=== PATIENT | male | born 1950 | race Caucasian/White ===

== ENCOUNTER 2017-07-07 08:23 | Emergency (ER) | payer OTHER, MEDICARE | END 2017-07-07 09:06 | disposition home or self-care (01) | LOC: ER 09:06 | DX: M25.562 Pain in left knee (principal); R53.1 Weakness; M19.90 Unspecified osteoarthritis, unspecified site; Z91.041 Radiographic dye allergy status; Z88.1 Allergy status to other antibiotic agents | CPT/HCPCS: 29505; 99283 ==

== ENCOUNTER 2017-10-18 12:18 | Day surgery (SDC) | payer OTHER ==
[2017-10-18] MEDS: IV RINGERS,LACTATED 1000ML 1,000 ML IV (07:00)
[~2017-10-18 12:18] MED LIST: LIDOCAINE 1% PF 2 ML VIAL. ID; MORPHINE SULFATE 2 MG/ML DISP.SYRIN. IV; ONDANSETRON PF 4 MG/2 ML VIAL. IV; PROCHLORPERAZINE 10 MG/2 ML VIAL. IV; fentaNYL PF VIAL 100 MCG/2 ML VIAL IV
[2017-10-18] MEDS ORDERED: LIDOCAINE 2% JELLY 6ML IN APPLICATOR. (12:23)
[2017-10-18] MEDS ORDERED: LIDOCAINE 2% PF Vial for OR 5 ML VIAL. (13:08)
[2017-10-18] MEDS ORDERED: ONDANSETRON PF 4 MG/2 ML VIAL. (13:08)
[2017-10-18] MEDS ORDERED: PROPOFOL 20 ML IV (13:08)
[2017-10-18] MEDS ORDERED: fentaNYL PF VIAL 100 MCG/2 ML VIAL ×2 (13:09→14:22)
[2017-10-18 13:44] LABS: POC GLUCOSE 132 mg/dL (70-99)
[2017-10-18] MEDS: CIPROFLOXACIN 400MG PREMIX 200 ML IV (13:50)
[2017-10-18 13:57] LABS: BILIRUBIN,URINE NEGATIVE (NEG); CLARITY,URINE CLOUDY; COLOR,URINE YELLOW; GLUCOSE,URINE NEGATIVE (NEG); NITRITE,URINE POSITIVE (NEG); PH,URINE 5.5; PROTEIN,URINE NEGATIVE (NEG-TRACE); UROBILINOGEN,URINE 0.2 mg/dL (0.2 mg/dL)
[2017-10-18] MEDS ORDERED: GLYCOPYRROLATE 1 MG/5 ML VIAL. (14:00)
[2017-10-18] MEDS ORDERED: ePHEDrine PF IN SALINE 50 MG/5 ML DISP.SYRIN IV (14:05)
[2017-10-18 14:18] LABS: AMORPHOUS SEDIMENT,UR PRESENT /HPF; BACTERIA,URINE MANY /HPF (0-FEW); RBC,URINE 0 /HPF (0-2); WBC,URINE TNTC /HPF (0-4)
[2017-10-18 14:21] LABS: PROSTATE SPECIFIC ANTIGEN 1.75 ng/mL (0.00-4.00)
[2017-10-18] MEDS: LIDOCAINE 2% JELLY 6ML IN APPLICATOR. (14:35)
[2017-10-18 15:04] LABS: POC GLUCOSE 141 mg/dL (70-99)
[2017-10-18] MEDS: HYDROcodone/APAP 5/325MG 1 TAB TABLET PO (15:21)
== END 2017-10-18 16:50 | disposition home or self-care (01) ==
LOC: SURG 12:18
DX: N40.1 Benign prostatic hyperplasia with lower urinary tract symptoms (principal); E78.00 Pure hypercholesterolemia, unspecified; I10 Essential (primary) hypertension; Z98.890 Other specified postprocedural states; Z98.52 Vasectomy status; Z87.440 Personal history of urinary (tract) infections; Z87.39 Personal history of other diseases of the musculoskeletal system and connective tissue
CPT/HCPCS: 36415; 81001; 82962; 87086; 87186; A7015; G0103; J0744; J2001; J2405; J2704; J3010; J3490

== ENCOUNTER 2018-08-23 19:10 | Emergency (ER) | payer OTHER ==
[~2018-08-23] VITALS: Ht 177.8 cm; Wt 80.3 kg
[~2018-08-23 19:10] MED LIST changes: +ACET650T10 PO; +AMLO5TAB4 PO; +ASPI-482 PO; +CHOL500016 PO; +CINN500C2 PO; +CIPR500T6 PO; +CYAN1TAB28 PO; +CYCL10TA2 PO; +FINA5TAB PO; +GLIM2TAB2 PO; +HYDR-2679 PO; +HYDR-3164 PO; +IBUP-1027 PO; +IBUP-1060 PO; -LIDOCAINE 1% PF 2 ML VIAL. ID; +LOSA100T2 PO; +LOSA1TAB22 PO; +METF10007 PO; -MORPHINE SULFATE 2 MG/ML DISP.SYRIN. IV; +OMEG1CAP6 PO; +OMEG300C PO; -ONDANSETRON PF 4 MG/2 ML VIAL. IV; -PROCHLORPERAZINE 10 MG/2 ML VIAL. IV; +TAMS0.4C97 PO; +TRAM50TA PO; +UBID30CA9 PO; -fentaNYL PF VIAL 100 MCG/2 ML VIAL IV
[2018-08-23] MEDS ORDERED: IV NORMAL SALINE 1000ML BAG 1,000 ML IV ONE ×2 (19:45→21:15)
[2018-08-23] MEDS ORDERED: MORPHINE SULFATE 4 MG/ML VIAL. IV ONE (19:45)
[2018-08-23] MEDS ORDERED: ONDANSETRON PF 4 MG/2 ML VIAL. IV ONE (19:45)
[2018-08-23 19:54] LABS: BASO # 0.1 x10^3/uL (0.0-0.2); BASO % 1 % (0-3); EOS # 0.2 x10^3/uL (0.0-0.7); EOS % 1 % (0-3); HEMOGLOBIN 12.7 g/dL (13.0-17.5); LYMPH # 3.3 x10^3/uL (1.0-4.8); LYMPH % 22 % (24-48); MEAN CORPUSCULAR HEMOGLOBIN 31 pg (25-35); MEAN CORPUSCULAR HGB CONC 33 g/dL (31-37); MEAN CORPUSCULAR VOLUME 95 fL (79-100); MONO # 1.7 x10^3/uL (0.0-1.1); MONO % 11 % (0-9); NEUT # 10.1 x10^3uL (1.8-7.7); NEUT % 66 % (31-73); PLATELET COUNT 320 x10^3/uL (140-400); RED CELL DISTRIBUTION WIDTH 14.9 % (11.5-14.5); WHITE BLOOD COUNT 15.5 x10^3/uL (4.0-11.0)
[2018-08-23 20:08] LABS: CALCIUM 9.1 mg/dL (8.5-10.1); CREATININE 2.1 mg/dL (0.7-1.3); GFR 31.5; POTASSIUM 3.9 mmol/L (3.5-5.1)
[2018-08-23 20:14] LABS: ALBUMIN 3.4 g/dL (3.4-5.0); ALBUMIN/GLOBULIN RATIO 0.8 (1.0-1.7); TOTAL BILIRUBIN 0.4 mg/dL (0.2-1.0); TOTAL PROTEIN 7.8 g/dL (6.4-8.2)
[2018-08-23 21:03] LABS: BILIRUBIN,URINE NEGATIVE (NEG); CLARITY,URINE CLEAR; COLOR,URINE YELLOW; NITRITE,URINE NEGATIVE (NEG); PH,URINE 5.5; PROTEIN,URINE 30 mg/dL (NEG-TRACE); UROBILINOGEN,URINE 0.2 mg/dL (0.2 mg/dL)
[2018-08-23 21:13] LABS: BACTERIA,URINE 0 /HPF (0-FEW); RBC,URINE RARE /HPF (0-2); SQUAMOUS EPITHELIAL CELL,UR FEW /LPF; WBC,URINE RARE /HPF (0-4)
[2018-08-23] MEDS ORDERED: cefTRIAXone IV Push 1 GM VIAL. IVP ONE (21:15)
[2018-08-23 22:17] LABS: CREATININE 1.9 mg/dL (0.7-1.3); GFR 35.3
[2018-08-23] MEDS ORDERED: TAMS0.4C97 PO (22:26)
[2018-08-23] MEDS ORDERED: OXYC1TAB15 PO (22:26)
--- NOTE | 2018-08-23 22:26 | PHYS DOC ---
Past Medical History Past Medical History: Arthritis, Hypertension, Kidney Stone (GHISLAINE MATUTE) Past Surgical History: Other Additional Past Surgical Histo: LEFT KNEE REPLACEMENT (GHISLAINE MATUTE) Alcohol Use: None Drug Use: None (GHISLAINE MATUTE) Adult General Chief Complaint Chief Complaint: FLANK PAIN HPI HPI Patient is a 67 year old M who presents with L flank pain. Pt was seen at [facility] 2 days ago and dx with a L ureteral [address] scan. He does have a hx of a kidney stone almost 20 years ago and states he passed it without intervention. He went home from hospital on Hydrocodone and states today the pain is not controlled so decided to come to ER. Pt states he actually feels quite a bit better now that he is here in ER even prior to medications. He is afebrile and appears well at time of exam. Copy of pt's records from [facility] were obtained and reviewed. CT showed the 5mm stone with moderate hydronephrosis and some stranding. WBC at that time was 19 and Cr was 1.4. Pt's urine was clean. (GHISLAINE MATUTE) Review of Systems Review of Systems Constitutional: Denies fever or chills [] Respiratory: Denies cough or shortness of breath [] Cardiovascular: Denies chest pain GI: Reports L sided flank pain around to LLQ. : Denies dysuria or hematuria L flank pain Musculoskeletal: Denies back pain or joint pain [] Integument: Denies rash or skin lesions [] Neurologic: Denies headache, focal weakness or sensory changes [] All other systems were reviewed and found to be within normal limits, except as documented in this note. (GHISLAINE MATUTE) Current Medications Current Medications Current Medications Medications (Trade) Dose Ordered Sig/Andrea Start Time Stop Time Status Last Admin Dose Admin Ceftriaxone Sodium (Rocephin) 1 gm 1X ONCE 08/23/18 21:15 08/23/18 21:16 DC 08/23/18 21:16 1 GM Morphine Sulfate (Morphine Sulfate) 4 mg 1X ONCE 08/23/18 19:45 08/23/18 19:50 DC 08/23/18 20:00 4 MG Ondansetron HCl (Zofran) 4 mg 1X ONCE 08/23/18 19:45 08/23/18 19:50 DC 08/23/18 19:59 4 MG Sodium Chloride 1,000 ml @ 1,000 mls/hr 1X ONCE 08/23/18 21:15 08/23/18 22:14 DC 08/23/18 21:16 1,000 MLS/HR (KECIA MATHEWS MD) Allergies Allergies Allergies Coded Allergies Type Severity Reaction Last Updated Verified Iodinated Contrast- Oral and IV Dye Allergy Severe Unknown 10/18/17 Yes cephalexin Allergy Intermediate Rash 10/18/17 Yes cyclobenzaprine Allergy Intermediate Unknown 10/18/17 Yes (KECIA MATHEWS MD) Physical Exam Physical Exam Constitutional: Well developed, well nourished, no acute distress, non-toxic appearance. [] Neck: Normal range of motion, no tenderness, supple, no stridor. [] Cardiovascular:Heart rate regular rhythm, no murmur [] Lungs & Thorax: Bilateral breath sounds clear to auscultation [] Abdomen: Bowel sounds normal, soft, no tenderness, no masses, no pulsatile masses. No palpable tenderness on exam. Skin: Warm, dry, no erythema, no rash. [] Back: No tenderness. Mild L CVA tenderness. Extremities: No tenderness, no cyanosis, no clubbing, ROM intact, no edema. [] Neurologic: Alert and oriented X 3, normal motor function, normal sensory function, no focal deficits noted. [] Psychologic: Affect normal, judgement normal, mood normal. [] (GHISLAINE MATUTE) Current Patient Data Vital Signs Vital Signs Date Time Temp Pulse Resp B/P (MAP) Pulse Ox O2 Delivery O2 Flow Rate FiO2 08/23/18 22:34 57 17 165/72 (103) 95 Room Air 08/23/18 19:16 99.5 99.5 (KECIA MATHEWS MD) Lab Values Laboratory Tests Test 08/23/18 19:35 08/23/18 20:50 08/23/18 22:00 White Blood Count 15.5 x10^3/uL (4.0-11.0) H Red Blood Count 4.10 x10^6/uL (4.30-5.70) L Hemoglobin 12.7 g/dL (13.0-17.5) L Hematocrit 39.0 % (39.0-53.0) Mean Corpuscular Volume 95 fL (79-100) Mean Corpuscular Hemoglobin 31 pg (25-35) Mean Corpuscular Hemoglobin Concent 33 g/dL (31-37) Red Cell Distribution Width 14.9 % (11.5-14.5) H Platelet Count 320 x10^3/uL (140-400) Neutrophils (%) (Auto) 66 % (31-73) Lymphocytes (%) (Auto) 22 % (24-48) L Monocytes (%) (Auto) 11 % (0-9) H Eosinophils (%) (Auto) 1 % (0-3) Basophils (%) (Auto) 1 % (0-3) Neutrophils # (Auto) 10.1 x10^3uL (1.8-7.7) H Lymphocytes # (Auto) 3.3 x10^3/uL (1.0-4.8) Monocytes # (Auto) 1.7 x10^3/uL (0.0-1.1) H Eosinophils # (Auto) 0.2 x10^3/uL (0.0-0.7) Basophils # (Auto) 0.1 x10^3/uL (0.0-0.2) Sodium Level 137 mmol/L (136-145) Potassium Level 3.9 mmol/L (3.5-5.1) Chloride Level 100 mmol/L (98-107) Carbon Dioxide Level 24 mmol/L (21-32) Anion Gap 13 (6-14) Blood Urea Nitrogen 29 mg/dL (8-26) H Creatinine 2.1 mg/dL (0.7-1.3) H 1.9 mg/dL (0.7-1.3) H Estimated GFR (Cockcroft-Gault) 31.5 35.3 BUN/Creatinine Ratio 14 (6-20) Glucose Level 232 mg/dL (70-99) H Lactic Acid Level 1.8 mmol/L (0.4-2.0) Calcium Level 9.1 mg/dL (8.5-10.1) Total Bilirubin 0.4 mg/dL (0.2-1.0) Aspartate Amino Transferase (AST) 18 U/L (15-37) Alanine Aminotransferase (ALT) 26 U/L (16-63) Alkaline Phosphatase 81 U/L (46-116) Total Protein 7.8 g/dL (6.4-8.2) Albumin 3.4 g/dL (3.4-5.0) Albumin/Globulin Ratio 0.8 (1.0-1.7) L Urine Collection Type Unknown Urine Color Yellow Urine Clarity Clear Urine pH 5.5 Urine Specific Pierson 1.020 Urine Protein 30 mg/dL (NEG-TRACE) Urine Glucose (UA) 500 mg/dL (NEG) Urine Ketones (Stick) Negative mg/dL (NEG) Urine Blood Trace (NEG) Urine Nitrite Negative (NEG) Urine Bilirubin Negative (NEG) Urine Urobilinogen Dipstick 0.2 mg/dL (0.2 mg/dL) Urine Leukocyte Esterase Negative (NEG) Urine RBC Rare /HPF (0-2) Urine WBC Rare /HPF (0-4) Urine Squamous Epithelial Cells Few /LPF Urine Bacteria 0 /HPF (0-FEW) Laboratory Tests 08/23/18 19:35 Laboratory Tests 08/23/18 19:35 08/23/18 22:00 (KECIA MATHEWS MD) EKG EKG [] (GHISLAINE MATUTE) Radiology/Procedures Radiology/Procedures [] (GHISLAINE MATUTE) Course & Med Decision Making Course & Med Decision Making Pertinent Labs and Imaging studies reviewed. (See chart for details) Pt's WBC is actually improved from 19 two days ago to 15 today. Bun/Cr was e levated today and he reports he has not been drinking much fluid. Cr was elevated at 1.4 two days ago but up to 2.2 today. Pt given 2 liters of IV fluids while in ER and rechecked and down to 1.9. Pt's urine still clean and lactic acid is normal. He is feeling much better and would like to go home and f/u with Dr. Reardon as scheduled this next week. Discussed the importance of close f/u and to return if symptoms worsen at anytime. Pt voices understanding. Rx for Percocet and Flomax given. (GHISLAINE MATUTE) Course & Med Decision Making Staff Physician Addendum: I was working in the ER during the course of this patient's visit. I was available for consultation as needed, but I was not directly involved in the care of this patient. (KECIA MATHEWS MD) Dragon Disclaimer Dragon Disclaimer This electronic medical record was generated, in whole or in part, using a voice recognition dictation system. (GHISLAINE MATUTE) Departure Departure Impression: Primary Impression: Kidney stone Additional Impression: Elevated serum creatinine Disposition: HOME, SELF-CARE Condition: IMPROVED Referrals: ANKIT ANG (PCP) EZEQUIEL REARDON MD Patient Instructions: Kidney Stones, [id number] Additional Instructions: Push fluids and rest. Keep your scheduled appointment with Dr. Reardon. Scripts Oxycodone/Apap 5-325 (PERCOCET 5-325 MG TABLET ) 1 Each Tablet 1 TAB PO PRN Q6HRS PRN for PAIN, #12 TAB 0 Refills Prov: GHISLAINE MATUTE 08/23/18 Tamsulosin Hcl (FLOMAX) 0.4 Mg Cap.er.24h 1 CAP PO DAILY, #14 CAP 11 Refills Prov: GHISLAINE MATUTE 08/23/18 Problem Qualifiers GHISLAINE MATUTE August 23, 2018 22:26 KECIA MATHEWS MD August 28, 2018 11:25
[2018-08-23 22:34] VITALS: BP 165/72
--- NOTE | 2018-08-28 13:07 | NUR ---
Late entry made to Medical Record. IV Stop time transcribed from eMAR to IV spreadsheet
== END 2018-08-23 22:45 | disposition home or self-care (01) ==
LOC: EEVIPCON 19:10 → ER 19:10
DX: N13.2 Hydronephrosis with renal and ureteral calculous obstruction (principal); R79.89 Other specified abnormal findings of blood chemistry; I10 Essential (primary) hypertension; Z88.1 Allergy status to other antibiotic agents; Z91.041 Radiographic dye allergy status; Z88.8 Allergy status to other drugs, medicaments and biological substances
CPT/HCPCS: 36415; 80053; 81001; 82565; 83605; 85025; 96361; 96374; 96375; 99285; J0696; J2270; J2405; J7030